=== PATIENT | female | born 1935 | race Caucasian/White ===

== ENCOUNTER 2017-08-12 20:43 | Observation (INO) ==
[2017-08-13] MEDS ORDERED: Naloxone 0.4 MG/ML INJ IVP PRN (01:02)
[2017-08-13] MEDS ORDERED: Acetaminophen 325 MG TABLET PO PRN (01:02)
--- NOTE | 2017-08-13 01:13 | Internal Med History&Physical ---
Date of Encounter: 08/13/17 Time of Encounter: 00:30 Internal Medicine - H&P: HPI Chief complaint: Shortness of breath Admitted From: Home Plans for Post Hospital Care: Home History of present illness: Ms. Lewis is a 81 year old female present to [place] emergency room for shortness of breath and palpitation. Past medical history is significant for A. fib on warfarin, history of DVT S/P IVC filter, S/P gastric bypass surgery. Patient has a history of A. fib. Today around 5 PM, she started having shaking , shortness of breath, and palpitation. Patient also complained ache on left side chest. Patient denies fever, cough, or nausea. In the emergency room, she was found A. fib RVR with heart rate 130s. She was placed on Cardizem drip. Patient's HR at down to around 100. Patient was transferred to our hospital for further management. Past Med Surg Social Fam HX - Past Medical History Medical history: arthritis, DVT, hyperlipidemia, osteoporosis Psychiatric history: no psych history - Social History Smoking Status: Never smoker Smokeless Tobacco Status: No Alcohol use: none Drug use: none - Family History Father Family Member Ethnicity: Non- Living Status: Age at : 67 Hx Family Cancer: Yes (colon cancer) Mother Family Member Ethnicity: Non- Living Status: Age at : 87 Hx Family Cardiac Disorders: Yes Internal Medicine - H&P: Meds Diltiazem HCl [Cardizem LA] 60 mg PO BID #10 tab.er.24h 10/19/15 [Rx] HYDROcodone/Acet 5/325 mg [[place] 5-325 mg] 1 tab PO Q6H PRN #12 tab 10/19/15 [Rx ] Aspirin [Lo-Dose Aspirin EC] 81 mg PO DAILY 08/13/17 [History] Calcium Carbonate [Calcium] 1,000 mg PO DAILY 08/13/17 [History] Cholecalciferol (D-3) [Vitamin D] 1,000 unit PO DAILY 08/13/17 [History] Ferrous Sulfate [Iron] 325 mg PO DAILY 08/13/17 [History] Furosemide [Lasix] 40 mg PO DAILY 08/13/17 [History] Potassium &Magnesium Aspartate [Ra Potassium-Magnesium Asp 250] 1 each PO [History] Spironolactone [Aldactone] 50 mg PO DAILY 08/13/17 [History] Warfarin [Coumadin] 7.5 mg PO DAILY 08/13/17 [History] 3 Allergy/AdvReac Type Severity Reaction Status Date / Time Penicillins Allergy Hives Verified 04/20/15 14:04 Sulfa (Sulfonamide Allergy Swelling Verified 04/20/15 14:04 Antibiotics) of Lip/Tongue/Throat All Systems PM: A 10-system review of systems was performed and is negative for pertinent findings except as documented above in the HPI. - Constitutional Vitals: Temp Pulse Resp BP Pulse Ox 98.3 F 93 20 100/70 96 08/12/17 23:41 08/12/17 23:41 08/12/17 23:41 08/12/17 23:41 08/12/17 23:41 General appearance: Present: A&O X 3, no acute distress, answers questions appropriately - Head Head exam: Present: atraumatic, normocephalic - Eye Eye exam: Present: PERRL, conjuntiva pink, sclera anicteric Pupils: Present: PERRL - Neck Neck exam general surgery: Present: supple, trachea midline. Absent: lymphadenopathy - Respiratory Respiratory exam: Present: chest wall tenderness (On left side), CTAB. Absent: accessory muscle use, rales, rhonchi, wheezes - Cardiovascular Cardiovascular exam: Present: irregular rhythm, +S1, +S2. Absent: diastolic murmur, gallop, rubs, systolic murmur - GI/Abdominal GI/Abdominal exam: Present: normal bowel sounds, soft, no peritoneal signs. Absent: distended, tenderness - Extremities Exam Extremities exam: Present: warm, radial pulses palpable and symmetrical. Absent : calf tenderness, cyanotic, pedal edema - Neurological Exam Neurological exam: Present: CN II-XII intact, oriented X3, no focal deficits. Absent: pronater drift, facial droop, speech deficit - Skin Skin exam: Present: dry, intact - Assessment and plan (1) Atrial fibrillation with RVR Current Visit: Yes Status: Acute Assessment and plan: Patient has history of A. fib. Patient did develop A. fib RVR. Right now, heart rate is well controlled on Cardizem drip - Continue Cardizem drip - Restart by mouth Cardizem in a.m. and try to taper down Cardizem drip gradually. - Check TSH and magnesium level - Continue cardiac monitoring (2) History of DVT (deep vein thrombosis) Current Visit: Yes Status: Acute Assessment and plan: On warfarin. S/P IVC filter. In [place] ER, patient has negative high sensitive d-dimer (< 150). (3) DVT prophylaxis Current Visit: Yes Status: Acute Assessment and plan: On Coumadin. INR therapeutic (4) Chest pain Current Visit: Yes Status: Acute Assessment and plan: Etiology is undetermined. Patient has chest wall tenderness, most likely skeletal muscular pain. Need to rule out ACS. - Continuous cardiac monitoring - Track 3 sets of troponin ( first troponin and CKMP negative in [place] ER), however, mild elevated troponin is not unexpected, considering patient has A. fib RVR. - D-dimer negative in [facility], PE is less likely Qualifiers: Qualified Code(s): R07.9 - Chest pain, unspecified - Time Spent With Patient Total time spent is greater than 50% in coordination of care (as documented) at patient's floor/unit and/or counseling patient: 40 minutes Greater than 35 minutes
[2017-08-13] MEDS ORDERED: 0.9 % Sodium Chloride 500 ML ONE (01:33)
[2017-08-13 03:33] LABS: Basophils % 0.3 %; Eosinophils % 0.3 %; Hematocrit 38.7 % (35.3-44.9); Hemoglobin 12.5 g/dL (11.5-15.4); Immature Granulocytes % 0.7 % (0-4); Lymphocytes # 0.9 K/mcL (0.6-4.6); Lymphocytes % 7.6 %; Mean Corpuscular HGB Conc 32.3 g/dL (31.6-35.5); Mean Corpuscular Hemoglobin 29.8 pg (28.0-33.3); Mean Corpuscular Volume 92.4 fL (83.0-100.0); Mean Platelet Volume 9.1 fL (9.4-12.4); Monocytes # 0.9 K/mcL (0.0-1.3); Monocytes % 7.6 %; Neutrophils # 9.8 K/mcL (1.6-8.9); Nucleated Red Blood Cells 0.2 /100 WBC (0); Platelet Count 322 K/mcL (140-400); Red Blood Count 4.19 M/mcL (3.82-4.97); Red Cell Distribution Width 14.6 % (11.5-14.5); Segmented Neutrophils % 83.5 %
[2017-08-13 03:40] LABS: INR 2.3; Prothrombin Time 25.2 Seconds (9.4-12.1)
[2017-08-13 03:49] LABS: BUN/Creatinine Ratio 31 (6-26); Blood Urea Nitrogen 26 mg/dL (8-23); Calcium 8.6 mg/dL (8.6-10.3); Carbon Dioxide 28 mEq/L (23-29); Chloride 105 mEq/L (98-107); Glucose 104 mg/dL (70-105); Magnesium 2.3 mg/dL (1.6-2.6); Osmolality,Calculated 291 (280-300); Sodium 138 mEq/L (136-145); eGFR For African Americans > 60 (> 60); eGFR For Non-African Americans > 60 (> 60)
[2017-08-13] MEDS: Cholecalciferol (D-3) 1,000 UNIT TABLET PO SCH (08:28)
[2017-08-13] MEDS: Furosemide 40 MG TABLET PO SCH (08:28)
[2017-08-13] MEDS: Aspirin Enteric Coated 81 MG Tablet PO SCH (08:29)
[2017-08-13] MEDS: *HR* HYDROcodone/Acet 5/325 mg TABLET PO PRN ×2 (08:29→17:45)
[2017-08-13] MEDS ORDERED: Diltiazem SR (12hr) 60 MG CAPSULE PO SCH (09:00)
[2017-08-13] MEDS: *HR* Warfarin 7.5 MG TABLET PO SCH (17:45)
[2017-08-14] MEDS ORDERED: Regadenoson 0.4 MG/5 ML SYRINGE IVP ONE (05:24)
[2017-08-14 05:40] LABS: Basophils % 0.5 %; Eosinophils % 0.3 %; Hemoglobin 13.8 g/dL (11.5-15.4); Immature Granulocytes % 0.4 % (0-4); Lymphocytes # 1.4 K/mcL (0.6-4.6); Mean Corpuscular HGB Conc 32.1 g/dL (31.6-35.5); Mean Corpuscular Hemoglobin 29.9 pg (28.0-33.3); Mean Corpuscular Volume 93.1 fL (83.0-100.0); Mean Platelet Volume 9.4 fL (9.4-12.4); Monocytes % 12.3 %; Neutrophils # 5.6 K/mcL (1.6-8.9); Platelet Count 321 K/mcL (140-400); Red Blood Count 4.62 M/mcL (3.82-4.97); Red Cell Distribution Width 14.5 % (11.5-14.5); Segmented Neutrophils % 69.5 %
[2017-08-14 05:45] LABS: INR 1.4; Prothrombin Time 14.9 Seconds (9.4-12.1)
[2017-08-14 05:55] LABS: BUN/Creatinine Ratio 32 (6-26); Blood Urea Nitrogen 24 mg/dL (8-23); Carbon Dioxide 29 mEq/L (23-29); Chloride 109 mEq/L (98-107); Glucose 87 mg/dL (70-105); Magnesium 2.3 mg/dL (1.6-2.6); Osmolality,Calculated 299 (280-300); Sodium 143 mEq/L (136-145); eGFR For African Americans > 60 (> 60); eGFR For Non-African Americans > 60 (> 60)
[2017-08-14] MEDS: *HR* HYDROcodone/Acet 5/325 mg TABLET PO PRN ×2 (10:29→17:40)
[2017-08-14] MEDS: Aspirin Enteric Coated 81 MG Tablet PO SCH (10:30)
[2017-08-14] MEDS: Cholecalciferol (D-3) 1,000 UNIT TABLET PO SCH (10:30)
[2017-08-14] MEDS: Furosemide 40 MG TABLET PO SCH (10:30)
--- NOTE | 2017-08-14 11:07 | Internal Med Progress Note ---
Date of Encounter: 08/14/17 Time of Encounter: 10:30 - Assessment and plan (1) Atrial fibrillation with RVR Current Visit: Yes Status: Acute Assessment and plan: Echo today: Impressions: LVEF 55%. Indeterminate diastolic function. Normal right ventricular structure and function. Severely dilated left atrium. Mild tricuspid regurgitation. No pulmonary hypertension. Plan #1 use IV Cardizem as needed. Patient got morning oral dose of Cardizem. We will start beta lópez with hopes to achieve better rate control. Wean off IV Cardizem infusion as tolerated to achieve heart rate present 110. #2 in evidence of dilated left atrium, rhythm control will be a difficult strategy. (2) Chest pain Current Visit: Yes Status: Acute Assessment and plan: Plan #1 continue aspirin and beta lópez #2 nuclear Lexiscan stress test when rate controlled #3 consider cardiology evaluation if any significant changes noted on stress test (3) History of DVT (deep vein thrombosis) Current Visit: Yes Status: Acute Assessment and plan: On warfarin. S/P IVC filter. In [place] ER, patient has negative high sensitive d-dimer (< 150). (4) DVT prophylaxis Current Visit: Yes Status: Acute Assessment and plan: On Coumadin. INR therapeutic - Time Spent With Patient Total time spent is greater than 50% in coordination of care (as documented) at patient's floor/unit and/or counseling patient: 25 - 35 minutes - Subjective Interval history: She reports palpitations this morning. Had echo but could not do stress test because of tachycardia. - Constitutional Vitals: Temp Pulse Resp BP Pulse Ox 97.5 F L 104 16 114/78 98 08/14/17 10:03 08/14/17 10:03 08/14/17 10:03 08/14/17 10:03 08/14/17 10:03 General appearance: Present: A&O X 3, no acute distress, answers questions appropriately Exam: Physical exam Gen: Comfortable, laying in bed, in no visible distress HEENT: Normocephalic, atraumatic. No conjunctival icterus. Moist oral mucosa. Neck: Supple Lungs: Clear to auscultation, no foreign sounds Heart: Normal S1-S2, no murmurs rubs or gallops Abdomen: Normoactive bowel sounds, no guarding rigidity or tenderness Extremities: No edema clubbing or cyanosis Neuro: Alert oriented 3, no focal deficits Skin: No skin lesions Internal Medicine: Result - Labs CBC & Chem 7: 08/14/17 04:56 08/14/17 04:56 Labs: Short CBC 08/14/17 Range/Units 04:56 WBC 8.0 (4.3-11.1) K/mcL Hgb 13.8 (11.5-15.4) g/dL Hct 43.0 (35.3-44.9) % Plt Count 321 (140-400) K/mcL Neutrophils # 5.6 (1.6-8.9) K/mcL BMP 08/14/17 04:56 Sodium 143 Potassium 4.0 Chloride 109 H Carbon Dioxide 29 BUN 24 H Creatinine 0.76 Glucose 87 Calcium 9.0 - ABG Interpretation ABG results: PT/INR, D-dimer PT 14.9 Seconds (9.4-12.1) H 08/14/17 04:56 - Impressions Impressions Echocardiogram 08/14/17 13:13 Impressions: LVEF 55%. Indeterminate diastolic function. Normal right ventricular structure and function. Severely dilated left atrium. Mild tricuspid regurgitation. No pulmonary hypertension. Left Ventricular Wall Motion: Rest Echo Findings All wall segments showed normal motion. Findings: Study Quality * Technically adequate exam. ECG Findings * Atrial fibrillation. Left Ventricle * LVEF 55%. * Indeterminate diastolic function. * Normal LV chamber size, wall thickness and function. Right Ventricle * Normal right ventricular structure and function. Left Atrium * Severely dilated left atrium. Right Atrium * Mildly dilated right atrium. Aortic Valve * Trileaflet aortic valve. * Mildly thickened aortic valve leaflets. * Mild-moderate aortic regurgitation. * No aortic stenosis. Mitral Valve * No mitral stenosis. * Normal mitral valve structure. * Trace mitral regurgitation. Tricuspid Valve * Tricuspid valve not well visualized. * Mild tricuspid regurgitation. * Estimated RA pressure is 3 mmHg. * Estimated RVSP is 28 mmHg. * No pulmonary hypertension. Pulmonic Valve * Pulmonic valve is not well visualized. * No pulmonic stenosis. * No pulmonic regurgitation. Pulmonary Artery * Pulmonary artery not well visualized. Aorta * Normally sized aortic root. Pericardium * There is no pericardial effusion present. Interatrial Septum * No evidence of PFO by color Doppler. IVC * Normal IVC dimensions and inspiratory collapse. Consult Discharge Plan - Plan Referrals: Marcelino Rosario Jr, MD [Primary Care Provider] -
--- NOTE | 2017-08-14 13:30 | Cardiology Consult Note ---
Date of Encounter: 08/14/17 Time of Encounter: 13:00 Assessment and Plan (1) Atrial fibrillation with RVR Current Visit: Yes Status: Acute Per cardiology: -Presented to outside facility with shakiness. -Noted to be a.fib RVR. History of a.fib. -ON cardizem CD 180mg at home and coumdain for antiocagulation. -Currently coumadin pharmacy to dose. -Average HR previous 12 hours noted to be 108, a.fib -TTE this admsision with LVEF 55%, severely dilated LA, mild TR, no segmental wall motion abnormalities. -TSH, K, Mg within normal limits. -Agree with resuming cardizem drip. Monitor BP closely. -Contine coumadin. -Will continue to monitor. (2) Chest pain Current Visit: Yes Status: Acute Per cardiology: -Reported some chest "achiness" while in a.fib RVR. -Denies current chest pain. -TRopnins negative x3 (1 [place], 2 [facility]). -ECG with no acute ischemic changes note from previosu ECG 10/2015. -Patient reports was planning for stress today, however unable to complete due to tachycardia. -No previous ischemic evaluations noted. -Agree with stress, if able to be rate controlled. -Will make NPO after midnight. -Will continue to monitor. Qualifiers: Chest pain type: unspecified Qualified Code(s): R07.9 - Chest pain, unspecified Discussion w patient/family: The assessment and plan as outlined above was discussed with the patient and/or family members who expressed understanding and agreement. All questions were answered. Thank you for involving us in the care of your patient. Please call with any questions. Discussed and reviewed with . History of Present Illness Consult date: 08/14/17 Requesting physician: Ruma Islas Consult reason: a.fib RVR Chief complaint: shakining, rapid HR History of present illness: Ms. 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 Patient presented to [place] with complaints of shakiness. Patient was noted to be in a.fib RVR and was transferred to [facility]. Patient reports history of a.fib and has been compliant with cardizem and coumadin. Patient also reports some chest achiness while HR was high, denies current. Reports increased shortness of breath with exertion recently. Past Med Surg Social Fam HX - Past Medical History Attestation: Yes The following information was validated with the patient. Source: patient, old records reviewed, obtained from family Medical history: arthritis, atrial fibrillation, DVT, hyperlipidemia, osteoporosis Psychiatric history: no psych history - Social History Smoking Status: Never smoker Smokeless Tobacco Status: No Alcohol use: none Drug use: none - Family History Father Family Member Ethnicity: Non- Living Status: Age at : 67 Hx Family Cancer: Yes (colon cancer) Mother Family Member Ethnicity: Non- Living Status: Age at : 87 Hx Family Cardiac Disorders: Yes Medications and Allergies HYDROcodone/Acet 5/325 mg [[place] 5-325 mg] 1 tab PO Q6H PRN #12 tab 10/19/15 [Rx ] Aspirin [Lo-Dose Aspirin EC] 81 mg PO DAILY 08/13/17 [History] Calcium Carbonate [Calcium] 1,000 mg PO DAILY 08/13/17 [History] Cholecalciferol (D-3) [Vitamin D] 1,000 unit PO DAILY 08/13/17 [History] Diltiazem HCl [Cardizem LA] 180 mg PO DAILY 08/13/17 [History] Ferrous Sulfate [Iron] 325 mg PO DAILY 08/13/17 [History] Furosemide [Lasix] 40 mg PO TID 08/13/17 [History] Potassium &Magnesium Aspartate [Ra Potassium-Magnesium Asp 250] 1 each PO DAILY 08/13/17 [History] Spironolactone [Aldactone] 50 mg PO DAILY 08/13/17 [History] Warfarin [Coumadin] 7.5 mg PO DAILY 08/13/17 [History] 3 Allergy/AdvReac Type Severity Reaction Status Date / Time Penicillins Allergy Hives Verified 08/13/17 10:58 Sulfa (Sulfonamide Allergy Swelling Verified 08/13/17 10:58 Antibiotics) of Lip/Tongue/Throat All Systems Review: The remainder of the systems were reviewed and are negative - Cardiovascular Cardiovascular: as per HPI, chest pain at rest, dyspnea on exertion, rapid heart rate Physical Examination Vital Signs, Last 4 Hours Temp Pulse Resp BP Pulse Ox 08/14/17 11:35 97.4 F L 69 16 108/66 99 08/14/17 10:03 97.5 F L 104 16 114/78 98 General: Conversant, No Apparent Distress HEENT: Atraumatic, Normocephaly, Mucus Membranes Moist Neck: No JVD, Normal carotid pulses Cardiac: Normal S1 and S2, No Murmur, Other (Irregularly irregular) Lungs: Normal Breath Sounds, No Wheeze, Rales, Rhonchi Neuro: Alert and responsive, No focal deficits noted Abdomen: Soft, Non-Tender Skin: No rashes noted on visualized skin Musculoskeletal: No Chest Wall Tenderness Extremities: No Clubbing, No Cyanosis, No Edema, Normal Pulses Results 08/14/17 04:56 08/14/17 04:56 Lab Results Impressions Echocardiogram 08/14/17 13:13 Impressions: LVEF 55%. Indeterminate diastolic function. Normal right ventricular structure and function. Severely dilated left atrium. Mild tricuspid regurgitation. No pulmonary hypertension. Left Ventricular Wall Motion: Rest Echo Findings All wall segments showed normal motion. Findings: Study Quality * Technically adequate exam. ECG Findings * Atrial fibrillation. Left Ventricle * LVEF 55%. * Indeterminate diastolic function. * Normal LV chamber size, wall thickness and function. Right Ventricle * Normal right ventricular structure and function. Left Atrium * Severely dilated left atrium. Right Atrium * Mildly dilated right atrium. Aortic Valve * Trileaflet aortic valve. * Mildly thickened aortic valve leaflets. * Mild-moderate aortic regurgitation. * No aortic stenosis. Mitral Valve * No mitral stenosis. * Normal mitral valve structure. * Trace mitral regurgitation. Tricuspid Valve * Tricuspid valve not well visualized. * Mild tricuspid regurgitation. * Estimated RA pressure is 3 mmHg. * Estimated RVSP is 28 mmHg. * No pulmonary hypertension. Pulmonic Valve * Pulmonic valve is not well visualized. * No pulmonic stenosis. * No pulmonic regurgitation. Pulmonary Artery * Pulmonary artery not well visualized. Aorta * Normally sized aortic root. Pericardium * There is no pericardial effusion present. Interatrial Septum * No evidence of PFO by color Doppler. IVC * Normal IVC dimensions and inspiratory collapse. Active Medications Acetaminophen (Tylenol) 650 mg PO Q6HR PRN PRN Reason: Mild Pain/Fever Stop: 02/12/18 01:03 Hydrocodone Bitart/Acetaminophen ([place] 5-325 Mg) 1 tab PO Q6H PRN PRN Reason: Pain Stop: 02/12/18 01:07 Last Admin: 08/14/17 10:29 Dose: 1 tab Aspirin (Aspirin Ec) 81 mg PO DAILY [facility] Stop: 02/12/18 09:01 Last Admin: 08/14/17 10:30 Dose: 81 mg Calcium Carbonate (Tums) 1,000 mg PO DAILY [facility] Stop: 02/12/18 09:01 Last Admin: 08/14/17 10:30 Dose: 1,000 mg Ferrous Sulfate (Ferrous Sulfate) 325 mg PO DAILY [facility] Stop: 02/12/18 09:01 Last Admin: 08/14/17 10:30 Dose: 325 mg Furosemide (Lasix) 40 mg PO DAILY [facility] Stop: 02/12/18 09:01 Last Admin: 08/14/17 10:30 Dose: 40 mg Diltiazem HCl 125 mg/ Sodium (Chloride) 125 mls @ 5 mls/hr IVC .Q24H [facility] PRN Reason: 5 MG/HR Stop: 02/13/18 11:16 Metoprolol Tartrate (Lopressor) 25 mg PO Q6HR [facility] Stop: 02/13/18 12:01 Naloxone HCl (Narcan) 0.4 mg IVP Q2MIN PRN PRN Reason: SEE COMMENTS Stop: 02/12/18 01:03 Vitamin D (Vitamin D) 1,000 unit PO DAILY [facility] Stop: 02/12/18 09:01 Last Admin: 08/14/17 10:30 Dose: 1,000 unit Warfarin Sodium (Coumadin) 7.5 mg PO DAILY@1800 [facility] Stop: 02/12/18 18:01 Last Admin: 08/13/17 17:45 Dose: 7.5 mg Warfarin Sodium (Coumadin Perpt) 1 each PO DAILY@1800 PRN PRN Reason: SEE COMMENTS Stop: 02/13/18 18:01 Laboratory Tests 08/13/17 08/13/17 08/13/17 01:16 03:04 06:34 Hgb Hct INR Potassium Creatinine Magnesium Troponin I < 0.03 < 0.03 TSH 1.390 08/14/17 08/14/17 08/14/17 04:56 04:56 04:56 Hgb 13.8 Hct 43.0 INR 1.4 Potassium 4.0 Creatinine 0.76 Magnesium 2.3 Troponin I TSH - Imaging and Cardiology Chest Xray: report reviewed Echo: report reviewed - EKG Interpretation EKG results cardiology: personally reviewed (ECG with a.fib RVR, HR 134.), other (Telemetry reviewed with average HR previous 12 hours noted to be 108, a.fib. PVCS noted.) Consult Discharge Plan - Plan Referrals: Marcelino Rosario Jr, MD [Primary Care Provider] -
[2017-08-14] MEDS ORDERED: 0.9 % Sodium Chloride 500 ML ONE (13:40)
[2017-08-14] MEDS ORDERED: *HR* Digoxin 0.5 MG/2 ML AMPUL IVP ONE ×2 (16:29→23:00)
[2017-08-14] MEDS ORDERED: Warfarin perPT PO PRN (18:00)
[2017-08-14] MEDS: *HR* Warfarin 7.5 MG TABLET PO SCH (18:54)
[2017-08-15 04:13] LABS: Basophils # 0.1 K/mcL (0.0-0.2); Basophils % 0.5 %; Eosinophils % 0.2 %; Hematocrit 43.8 % (35.3-44.9); Hemoglobin 14.1 g/dL (11.5-15.4); Immature Granulocytes % 0.4 % (0-4); Lymphocytes # 1.8 K/mcL (0.6-4.6); Lymphocytes % 19.4 %; Mean Corpuscular HGB Conc 32.2 g/dL (31.6-35.5); Mean Corpuscular Hemoglobin 29.9 pg (28.0-33.3); Monocytes # 1.1 K/mcL (0.0-1.3); Monocytes % 11.4 %; Neutrophils # 6.3 K/mcL (1.6-8.9); Platelet Count 323 K/mcL (140-400); Red Blood Count 4.71 M/mcL (3.82-4.97); Red Cell Distribution Width 14.2 % (11.5-14.5); Segmented Neutrophils % 68.1 %
[2017-08-15 04:18] LABS: INR 1.4; Prothrombin Time 15.4 Seconds (9.4-12.1)
[2017-08-15 04:27] LABS: BUN/Creatinine Ratio 35 (6-26); Blood Urea Nitrogen 28 mg/dL (8-23); Carbon Dioxide 24 mEq/L (23-29); Chloride 110 mEq/L (98-107); Glucose 88 mg/dL (70-105); Potassium 3.9 mEq/L (3.5-5.1); Sodium 141 mEq/L (136-145); eGFR For African Americans > 60 (> 60); eGFR For Non-African Americans > 60 (> 60)
[2017-08-15 04:28] LABS: Magnesium 2.2 mg/dL (1.6-2.6); Osmolality,Calculated 297 (280-300)
[2017-08-15] MEDS ORDERED: *HR* Digoxin 0.5 MG/2 ML AMPUL IVP ONE (05:00)
[2017-08-15] MEDS: *HR* HYDROcodone/Acet 5/325 mg TABLET PO PRN ×3 (05:53→19:58)
--- NOTE | 2017-08-15 07:52 | Internal Med Progress Note ---
<Chico Diana - Last Filed: 08/15/17 12:54> Date of Encounter: 08/15/17 Time of Encounter: 07:52 - Assessment and plan (1) Atrial fibrillation with RVR Current Visit: Yes Status: Acute Assessment and plan: Patient still in A-fib with better rate control on minimum rate of Cardizem drip. Attempting to wean to PO control. - optimize rate control - continue to wean Cardizem drip - transition to PO Cardizem and PO digoxin - continue Coumadin therapy with INR goal of 2 to 3; sub therapeutic INR at 1.4 today. Pharmacy to dose. - per cardiology, no further and patient testing needed - once stable on PO medications, will observe patient for period of time - likely discharge tomorrow or the day after - will arrange cardiology follow up within the next few weeks upon discharge - re-consult cardiology as needed ECHO: LVEF 55%. Indeterminate diastolic function. Normal right ventricular structure and function. Severely dilated left atrium. Mild tricuspid regurgitation. No pulmonary hypertension. (2) History of DVT (deep vein thrombosis) Current Visit: Yes Status: Acute Assessment and plan: On warfarin. S/P IVC filter. In [facility], patient has negative high sensitive d-dimer (< 150). (3) DVT prophylaxis Current Visit: Yes Status: Acute Assessment and plan: On Coumadin. INR sub therapeutic for goal. Pharmacy to dose. (4) Chest pain Current Visit: Yes Status: Resolved Assessment and plan: Improved with rate controlled a fib; all plans as above. Qualifiers: Chest pain type: unspecified Qualified Code(s): R07.9 - Chest pain, unspecified - Time Spent With Patient Total time spent is greater than 50% in coordination of care (as documented) at patient's floor/unit and/or counseling patient: - Subjective Interval history: Patient currently asymptomatic. Rate controlled though still in a fib at minimal rate Cardizem infusion; attempting to wean. - Constitutional Vitals: Temp Pulse Resp BP Pulse Ox 97.9 F 77 15 114/74 96 08/15/17 07:39 08/15/17 07:39 08/15/17 07:39 08/15/17 07:39 08/15/17 05:16 CONSTITUTIONAL: Alert and oriented X3, well-nourished, well appearing, in no apparent distress HEAD: Normocephalic; atraumatic. EYES: PER, no scleral icterus, no drainage, no conjunctival injection NOSE: The nose is normal in appearance without rhinorrhea Oropharynx: pink/moist, no tonsillar edema/erythema/exudates RESP: NRD without use of accessory musculature, CTA b/l with no wheezes/rales/ rhonchi CARD: irregularly irregular rhythm, without murmurs, rubs, or gallop; radial pulse palpated with rate in the 70s SKIN: normal appearance, no pallor/diaphoresis,mottling,jaundice,cyanosis EXT: Rad pulses 2+ and symmetrical; no lateralizing edema; no other lesions seen PSYCH: appropriate mood/affect Internal Medicine: Result - Labs CBC & Chem 7: 08/15/17 03:54 08/15/17 03:54 Labs: Short CBC 08/15/17 Range/Units 03:54 WBC 9.2 (4.3-11.1) K/mcL Hgb 14.1 (11.5-15.4) g/dL Hct 43.8 (35.3-44.9) % Plt Count 323 (140-400) K/mcL Neutrophils # 6.3 (1.6-8.9) K/mcL BMP 08/15/17 03:54 Sodium 141 Potassium 3.9 Chloride 110 H Carbon Dioxide 24 BUN 28 H Creatinine 0.79 Glucose 88 Calcium 9.0 - ABG Interpretation ABG results: PT/INR, D-dimer PT 15.4 Seconds (9.4-12.1) H 08/15/17 03:54 - Impressions Impressions Echocardiogram 08/14/17 13:13 Impressions: LVEF 55%. Indeterminate diastolic function. Normal right ventricular structure and function. Severely dilated left atrium. Mild tricuspid regurgitation. No pulmonary hypertension. Left Ventricular Wall Motion: Rest Echo Findings All wall segments showed normal motion. Findings: Study Quality * Technically adequate exam. ECG Findings * Atrial fibrillation. Left Ventricle * LVEF 55%. * Indeterminate diastolic function. * Normal LV chamber size, wall thickness and function. Right Ventricle * Normal right ventricular structure and function. Left Atrium * Severely dilated left atrium. Right Atrium * Mildly dilated right atrium. Aortic Valve * Trileaflet aortic valve. * Mildly thickened aortic valve leaflets. * Mild-moderate aortic regurgitation. * No aortic stenosis. Mitral Valve * No mitral stenosis. * Normal mitral valve structure. * Trace mitral regurgitation. Tricuspid Valve * Tricuspid valve not well visualized. * Mild tricuspid regurgitation. * Estimated RA pressure is 3 mmHg. * Estimated RVSP is 28 mmHg. * No pulmonary hypertension. Pulmonic Valve * Pulmonic valve is not well visualized. * No pulmonic stenosis. * No pulmonic regurgitation. Pulmonary Artery * Pulmonary artery not well visualized. Aorta * Normally sized aortic root. Pericardium * There is no pericardial effusion present. Interatrial Septum * No evidence of PFO by color Doppler. IVC * Normal IVC dimensions and inspiratory collapse. Consult Discharge Plan - Plan Referrals: Marcelino Rosario Jr, MD [Primary Care Provider] - 08/23/17 10:00 am <Wilfredo Marie - Last Filed: 08/15/17 15:55> Date of Encounter: 08/15/17 - Assessment and plan (1) Atrial fibrillation with RVR Current Visit: Yes Status: Acute (2) History of DVT (deep vein thrombosis) Current Visit: Yes Status: Acute (3) DVT prophylaxis Current Visit: Yes Status: Acute (4) Chest pain Current Visit: Yes Status: Resolved - Time Spent With Patient Total time spent is greater than 50% in coordination of care (as documented) at patient's floor/unit and/or counseling patient: - Constitutional Vitals: Temp Pulse Resp BP Pulse Ox 98.1 F 97 17 91/68 92 08/15/17 12:12 08/15/17 12:12 08/15/17 12:12 08/15/17 12:12 08/15/17 12:12 Internal Medicine: Result - Labs CBC & Chem 7: 08/15/17 03:54 08/15/17 03:54 Labs: Short CBC 08/15/17 Range/Units 03:54 WBC 9.2 (4.3-11.1) K/mcL Hgb 14.1 (11.5-15.4) g/dL Hct 43.8 (35.3-44.9) % Plt Count 323 (140-400) K/mcL Neutrophils # 6.3 (1.6-8.9) K/mcL BMP 08/15/17 03:54 Sodium 141 Potassium 3.9 Chloride 110 H Carbon Dioxide 24 BUN 28 H Creatinine 0.79 Glucose 88 Calcium 9.0 - ABG Interpretation ABG results: PT/INR, D-dimer PT 15.4 Seconds (9.4-12.1) H 08/15/17 03:54 - Attending Attestation I examined this patient and my medical decision-making was reviewed with the Resident Physician. I agree with the documented findings, disposition and treatment plan as described except to the extent set forth below. 81 F admitted for Afib with RVR, (paroxysmal), already on anticoagulation for DVT, no new complains, physical exam unremarkable, chest is CTAB, now being digitalized by cardio, continue management per cardio, blood pressure borderline low, continue to monitor, INR is sub-therapeutic, pharm to dose coumadin, monitor chem, rest of details as in the resident physician's documentation
[2017-08-15] MEDS: Cholecalciferol (D-3) 1,000 UNIT TABLET PO SCH (08:14)
[2017-08-15] MEDS: Furosemide 40 MG TABLET PO SCH (08:14)
[2017-08-15] MEDS: Aspirin Enteric Coated 81 MG Tablet PO SCH (08:14)
--- NOTE | 2017-08-15 11:01 | Cardiology Progress Note ---
Date of Encounter: 08/15/17 Time of Encounter: 09:30 Assessment and Plan (1) Atrial fibrillation with RVR Current Visit: Yes Status: Acute Per cardiology: -Presented to outside facility with shakiness. -Noted to be a.fib RVR. History of a.fib. -ON cardizem CD 180mg at home and coumdain for antiocagulation. -Currently coumadin pharmacy to dose. -Average HR previous 12 hours noted to be 82,a.fib -Was given IV dig load yesterday and started back on cardizem drip. Currently on cardizem drip at 2.5mg/hour. -TTE this admsision with LVEF 55%, severely dilated LA, mild TR, no segmental wall motion abnormalities. -TSH, K, Mg within normal limits. -Will start oral digoxin and oral cardizem. -Recommend outpatient stress and outpatient sleep study. -Cardiology will sign off and will follow in outpateint setting. Follow up set. (2) Chest pain Current Visit: Yes Status: Acute Per cardiology: -Reported some chest "achiness" while in a.fib RVR. -Denies current chest pain. -TRopnins negative x3 (1 [facility], 2 [facility]). -ECG with no acute ischemic changes note from previosu ECG 10/2015. -Patient reports was planning for stress today, however unable to complete due to tachycardia. -No previous ischemic evaluations noted. -Per discussion with , reasonable to proceed with outpateint stress test. Qualifiers: Chest pain type: unspecified Qualified Code(s): R07.9 - Chest pain, unspecified Discussion w patient/family: The assessment and plan as outlined above was discussed with the patient and/or family members who expressed understanding and agreement. All questions were answered. Thank you for involving us in the care of your patient. Please call with any questions. Discussed and reviewed with . Subjective Principal diagnosis: a.fib RVR Interval history: Patient denies chest pain. Denies shortness of breath this morning. Objective Vital Signs, Last 4 Hours Temp Pulse Resp BP 08/15/17 07:39 97.9 F 77 15 114/74 General: Conversant, No Apparent Distress HEENT: Atraumatic, Normocephaly, Mucus Membranes Moist Neck: No JVD, Normal carotid pulses Cardiac: Normal S1 and S2, No Murmur, Other (Irregularly irregular) Lungs: Normal Breath Sounds, No Wheeze, Rales, Rhonchi Neuro: Alert and responsive, No focal deficits noted Abdomen: Soft, Non-Tender Skin: No rashes noted on visualized skin Musculoskeletal: No Chest Wall Tenderness Extremities: No Clubbing, No Cyanosis, No Edema, Normal Pulses Results 08/15/17 03:54 08/15/17 03:54 Lab Results Active Medications Acetaminophen (Tylenol) 650 mg PO Q6HR PRN PRN Reason: Mild Pain/Fever Stop: 02/12/18 01:03 Hydrocodone Bitart/Acetaminophen ([place] 5-325 Mg) 1 tab PO Q6H PRN PRN Reason: Pain Stop: 02/12/18 01:07 Last Admin: 08/15/17 05:53 Dose: 1 tab Aspirin (Aspirin Ec) 81 mg PO DAILY CHANTELL Stop: 02/12/18 09:01 Last Admin: 08/15/17 08:14 Dose: 81 mg Calcium Carbonate (Tums) 1,000 mg PO DAILY CHANTELL Stop: 02/12/18 09:01 Last Admin: 08/15/17 08:14 Dose: 1,000 mg Digoxin (Lanoxin) 0.125 mg PO DAILY CHANTELL Stop: 02/14/18 10:31 Ferrous Sulfate (Ferrous Sulfate) 325 mg PO DAILY CHANTELL Stop: 02/12/18 09:01 Last Admin: 08/15/17 08:14 Dose: 325 mg Furosemide (Lasix) 40 mg PO DAILY CHANTELL Stop: 02/12/18 09:01 Last Admin: 08/15/17 08:14 Dose: 40 mg Diltiazem HCl 125 mg/ Sodium (Chloride) 125 mls @ 5 mls/hr IVC .Q24H CHANTELL PRN Reason: 5 MG/HR Stop: 02/13/18 11:16 Last Infusion: 08/15/17 08:45 Dose: 2.5 mg/hr, 2.5 mls/hr Naloxone HCl (Narcan) 0.4 mg IVP Q2MIN PRN PRN Reason: SEE COMMENTS Stop: 02/12/18 01:03 Vitamin D (Vitamin D) 1,000 unit PO DAILY CHANTELL Stop: 02/12/18 09:01 Last Admin: 08/15/17 08:14 Dose: 1,000 unit Warfarin Sodium (Coumadin Perpt) 1 each PO DAILY@1800 PRN PRN Reason: SEE COMMENTS Stop: 02/13/18 18:01 Warfarin Sodium (Coumadin) 10 mg PO 1800 ONE Stop: 08/15/17 18:01 Laboratory Tests 08/15/17 08/15/17 08/15/17 03:54 03:54 03:54 Hgb 14.1 INR 1.4 Potassium 3.9 Creatinine 0.79 Magnesium 2.2 - Imaging and Cardiology Chest Xray: report reviewed Echo: report reviewed - EKG Interpretation EKG results cardiology: other (Telemetry reviewed with average HR previous 12 hours noted to be 82, a.fib. 2.3 second pause noted at 0541. PVCs noted.) Consult Discharge Plan - Plan Referrals: Marcelino Rosario Jr, MD [Primary Care Provider] - 08/23/17 10:00 am
[2017-08-15] MEDS: Diltiazem CD (24hr) 120 MG CAPSULE PO SCH (11:43)
[2017-08-15] MEDS: *HR* Digoxin 0.125 MG TABLET PO SCH (11:44)
[2017-08-15] MEDS ORDERED: *HR* Warfarin 5 MG TABLET PO ONE (18:00)
[2017-08-16 04:30] LABS: Basophils % 0.3 %; Eosinophils % 0.2 %; Hematocrit 46.8 % (35.3-44.9); Hemoglobin 15.1 g/dL (11.5-15.4); Immature Granulocytes % 0.4 % (0-4); Lymphocytes # 2.1 K/mcL (0.6-4.6); Lymphocytes % 18.8 %; Mean Corpuscular HGB Conc 32.3 g/dL (31.6-35.5); Mean Corpuscular Hemoglobin 29.8 pg (28.0-33.3); Mean Corpuscular Volume 92.5 fL (83.0-100.0); Mean Platelet Volume 9.3 fL (9.4-12.4); Monocytes # 1.2 K/mcL (0.0-1.3); Neutrophils # 7.8 K/mcL (1.6-8.9); Platelet Count 343 K/mcL (140-400); Red Blood Count 5.06 M/mcL (3.82-4.97); Red Cell Distribution Width 14.1 % (11.5-14.5); Segmented Neutrophils % 69.3 %
[2017-08-16 04:36] LABS: INR 1.9; Prothrombin Time 20.2 Seconds (9.4-12.1)
[2017-08-16 04:52] LABS: BUN/Creatinine Ratio 25 (6-26); Blood Urea Nitrogen 21 mg/dL (8-23); Calcium 9.1 mg/dL (8.6-10.3); Carbon Dioxide 26 mEq/L (23-29); Chloride 107 mEq/L (98-107); Glucose 95 mg/dL (70-105); Osmolality,Calculated 297 (280-300); Potassium 3.9 mEq/L (3.5-5.1); Sodium 142 mEq/L (136-145); eGFR For African Americans > 60 (> 60); eGFR For Non-African Americans > 60 (> 60)
[2017-08-16] MEDS: *HR* Digoxin 0.125 MG TABLET PO SCH (08:29)
[2017-08-16] MEDS: Cholecalciferol (D-3) 1,000 UNIT TABLET PO SCH (08:29)
[2017-08-16] MEDS: Diltiazem CD (24hr) 120 MG CAPSULE PO SCH (08:29)
[2017-08-16] MEDS: Aspirin Enteric Coated 81 MG Tablet PO SCH (08:29)
[2017-08-16] MEDS: Furosemide 40 MG TABLET PO SCH ×2 (08:29→17:39)
--- NOTE | 2017-08-16 09:43 | Internal Med Progress Note ---
<Chico Diana - Last Filed: 08/16/17 09:41> Date of Encounter: 08/16/17 Time of Encounter: 09:41 - Assessment and plan (1) Atrial fibrillation with RVR Current Visit: Yes Status: Acute Assessment and plan: Patient still in A-fib with better rate control without use of Cardizem infusion. Does have acute exertional dyspnea that is not patient's baseline. Patient understands will need to stabilize this before we can safely discharge her. - Continue to optimize rate control - continue PO Cardizem and PO digoxin - continue Coumadin therapy with INR goal of 2 to 3; sub therapeutic INR at 1.9 today. Pharmacy to dose. - per cardiology, no further inpatient testing needed - once stable on PO medications, will observe patient for period of time - likely discharge tomorrow or the day after pending improvement and respiratory status - will maintain patient on continuous pulse ox symmetry and may require ambulatory O2 challenge - increased frequency of Lasix to b.i.d. - will arrange cardiology follow up within the next few weeks upon discharge - re-consult cardiology as needed ECHO: LVEF 55%. Indeterminate diastolic function. Normal right ventricular structure and function. Severely dilated left atrium. Mild tricuspid regurgitation. No pulmonary hypertension. (2) History of DVT (deep vein thrombosis) Current Visit: Yes Status: Acute Assessment and plan: On warfarin. S/P IVC filter. In [place] [facility], patient has negative high sensitive d-dimer (< 150). (3) DVT prophylaxis Current Visit: Yes Status: Acute Assessment and plan: On Coumadin. INR sub therapeutic for goal. Pharmacy to dose. (4) Chest pain Current Visit: Yes Status: Resolved Assessment and plan: Improved with rate controlled a fib; all plans as above. Qualifiers: Chest pain type: unspecified Qualified Code(s): R07.9 - Chest pain, unspecified - Time Spent With Patient Total time spent is greater than 50% in coordination of care (as documented) at patient's floor/unit and/or counseling patient: - Subjective Interval history: Cardizem infusion successfully winning; patient still has slightly regular rhythm though is overall more metronomic. Rate palpated by radial artery within 70 to 80 range. Patient does have acute complaint of exertional dyspnea saying she cannot walk more than 20 steps without becoming short of air needing to stop and take a break. This is abnormal for her as patient states her usual function would allow her to walk at least 1-2 laps around this med unit without any limiting shortness of breath. Of note, patient has been receiving one third of her usual rate of Lasix (home dose 40 mg PO TID; has been daily on inpatient basis). - Constitutional Vitals: Temp Pulse Resp BP Pulse Ox 97.7 F 90 16 111/79 95 08/16/17 07:21 08/16/17 07:21 08/16/17 07:21 08/16/17 07:21 08/16/17 08:34 CONSTITUTIONAL: Alert and oriented X3, well-nourished, well appearing, in no apparent distress HEAD: Normocephalic; atraumatic. EYES: PER, no scleral icterus, no drainage, no conjunctival injection NOSE: The nose is normal in appearance without rhinorrhea Oropharynx: pink/moist, no tonsillar edema/erythema/exudates RESP: apparently short of breath after ambulating from sink to bedside chair, lung sounds completely CTA b/l with no wheezes/rales/rhonchi CARD: irregularly irregular rhythm, without murmurs, rubs, or gallop; radial pulse palpated with rate in the 70s SKIN: normal appearance, no pallor/diaphoresis,mottling,jaundice,cyanosis EXT: Rad pulses 2+ and symmetrical; no lateralizing edema; no other lesions seen PSYCH: appropriate mood/affect Internal Medicine: Result - Labs CBC & Chem 7: 08/16/17 03:50 08/16/17 03:50 Labs: Short CBC 08/16/17 Range/Units 03:50 WBC 11.2 H (4.3-11.1) K/mcL Hgb 15.1 (11.5-15.4) g/dL Hct 46.8 H (35.3-44.9) % Plt Count 343 (140-400) K/mcL Neutrophils # 7.8 (1.6-8.9) K/mcL BMP 08/16/17 03:50 Sodium 142 Potassium 3.9 Chloride 107 Carbon Dioxide 26 BUN 21 Creatinine 0.84 Glucose 95 Calcium 9.1 - ABG Interpretation ABG results: PT/INR, D-dimer PT 20.2 Seconds (9.4-12.1) H 08/16/17 03:50 Consult Discharge Plan - Plan Referrals: Marcelino Rosario Jr, MD [Primary Care Provider] - 08/23/17 10:00 am <CynthiaChristenWilfredo T - Last Filed: 08/16/17 12:56> Date of Encounter: 08/16/17 - Assessment and plan (1) Atrial fibrillation with RVR Current Visit: Yes Status: Acute (2) History of DVT (deep vein thrombosis) Current Visit: Yes Status: Acute (3) DVT prophylaxis Current Visit: Yes Status: Acute (4) Chest pain Current Visit: Yes Status: Resolved - Time Spent With Patient Total time spent is greater than 50% in coordination of care (as documented) at patient's floor/unit and/or counseling patient: - Constitutional Vitals: Temp Pulse Resp BP Pulse Ox 97.6 F 80 16 100/66 97 08/16/17 11:47 08/16/17 11:47 08/16/17 11:47 08/16/17 11:47 08/16/17 11:47 Internal Medicine: Result - Labs CBC & Chem 7: 08/16/17 03:50 08/16/17 03:50 Labs: Short CBC 08/16/17 Range/Units 03:50 WBC 11.2 H (4.3-11.1) K/mcL Hgb 15.1 (11.5-15.4) g/dL Hct 46.8 H (35.3-44.9) % Plt Count 343 (140-400) K/mcL Neutrophils # 7.8 (1.6-8.9) K/mcL BMP 08/16/17 03:50 Sodium 142 Potassium 3.9 Chloride 107 Carbon Dioxide 26 BUN 21 Creatinine 0.84 Glucose 95 Calcium 9.1 - ABG Interpretation ABG results: PT/INR, D-dimer PT 20.2 Seconds (9.4-12.1) H 08/16/17 03:50 - Attending Attestation I examined this patient and my medical decision-making was reviewed with the Resident Physician. I agree with the documented findings, disposition and treatment plan as described except to the extent set forth below. 81 F admitted for Afib with RVR, (paroxysmal), already on anticoagulation for DVT She complained of dyspnea on exertion this mrn, she is ambulatory and functional at home, she says her dypsnea is worse than her baseline, no cough, no chest pain, O2 sat on room air is WNL Chest was CTAB on exam, no pedal edema Labs and Imaging reviewed, Increase her dose of lasix, place on pulse ox and monitor rest of details as in the resident physician's documentation
[2017-08-16] MEDS ORDERED: Ondansetron ODT 4 MG TAB.RAPDIS SL ONE (12:03)
[2017-08-16] MEDS ORDERED: Ondansetron ODT 4 MG TAB.RAPDIS SL PRN (12:04)
[2017-08-16] MEDS ORDERED: *HR* Warfarin 7.5 MG TABLET PO SCH (18:00)
[2017-08-17 03:49] LABS: Basophils % 0.3 %; Eosinophils % 0.2 %; Hemoglobin 13.7 g/dL (11.5-15.4); Immature Granulocytes % 0.4 % (0-4); Lymphocytes # 1.7 K/mcL (0.6-4.6); Lymphocytes % 16.6 %; Mean Corpuscular HGB Conc 32.6 g/dL (31.6-35.5); Mean Corpuscular Hemoglobin 29.7 pg (28.0-33.3); Mean Corpuscular Volume 90.9 fL (83.0-100.0); Mean Platelet Volume 9.2 fL (9.4-12.4); Monocytes # 1.2 K/mcL (0.0-1.3); Monocytes % 11.7 %; Neutrophils # 7.2 K/mcL (1.6-8.9); Platelet Count 304 K/mcL (140-400); Red Blood Count 4.62 M/mcL (3.82-4.97); Segmented Neutrophils % 70.8 %
[2017-08-17 03:55] LABS: INR 2.3; Prothrombin Time 24.8 Seconds (9.4-12.1)
[2017-08-17 04:19] LABS: BUN/Creatinine Ratio 36 (6-26); Blood Urea Nitrogen 24 mg/dL (8-23); Calcium 8.6 mg/dL (8.6-10.3); Carbon Dioxide 23 mEq/L (23-29); Chloride 108 mEq/L (98-107); Glucose 97 mg/dL (70-105); Osmolality,Calculated 294 (280-300); Potassium 3.5 mEq/L (3.5-5.1); Sodium 140 mEq/L (136-145); eGFR For African Americans > 60 (> 60); eGFR For Non-African Americans > 60 (> 60)
[2017-08-17 07:33] VITALS: BP 110/72
[2017-08-17] MEDS: *HR* Digoxin 0.125 MG TABLET PO SCH (08:43)
[2017-08-17] MEDS: Aspirin Enteric Coated 81 MG Tablet PO SCH (08:43)
[2017-08-17] MEDS: Diltiazem CD (24hr) 120 MG CAPSULE PO SCH (08:44)
[2017-08-17] MEDS: Cholecalciferol (D-3) 1,000 UNIT TABLET PO SCH (08:44)
[2017-08-17] MEDS: Furosemide 40 MG TABLET PO SCH (08:44)
--- NOTE | 2017-08-17 09:10 | Internal Med Progress Note ---
Date of Encounter: 08/17/17 Time of Encounter: 08:00 - Assessment and plan (1) Atrial fibrillation with RVR Current Visit: Yes Status: Acute (2) History of DVT (deep vein thrombosis) Current Visit: Yes Status: Acute (3) Chest pain Current Visit: Yes Status: Resolved (4) DVT prophylaxis Current Visit: Yes Status: Acute - Time Spent With Patient Total time spent is greater than 50% in coordination of care (as documented) at patient's floor/unit and/or counseling patient: - Subjective Interval history: Had nausea/vomiting x1 episode yesterday afternoon which resolved with Zofran. No recurrent ACS symptoms otherwise such as chest pain, shortness of breath, diaphoresis, light headedness, or syncope. No exertional dyspnea ambulating with RN. HR within normal range. Patient inquires as to why her heart rate keeps going up; explained to patient and presence of her son that the heart rate is overall well-controlled despite it irregularity. Patient's true heart rate is in the 70 to 80 range. Expressed to patient that prior to any further consideration of cardioversion, underlying triggers need to be assessed and there is plan to do so on an outpatient basis with cardiology team. Patient and son have no further questions. - Constitutional Vitals: Temp Pulse Resp BP Pulse Ox 97.4 F L 95 16 110/72 95 08/17/17 07:30 08/17/17 07:30 08/17/17 07:30 08/17/17 07:30 08/17/17 07:30 General appearance: Present: A&O X 3, no acute distress, answers questions appropriately Internal Medicine: Result - Labs CBC & Chem 7: 08/17/17 03:32 08/17/17 03:32 Labs: Short CBC 08/17/17 Range/Units 03:32 WBC 10.1 (4.3-11.1) K/mcL Hgb 13.7 (11.5-15.4) g/dL Hct 42.0 (35.3-44.9) % Plt Count 304 (140-400) K/mcL Neutrophils # 7.2 (1.6-8.9) K/mcL BMP 08/17/17 03:32 Sodium 140 Potassium 3.5 Chloride 108 H Carbon Dioxide 23 BUN 24 H Creatinine 0.66 Glucose 97 Calcium 8.6 - ABG Interpretation ABG results: PT/INR, D-dimer PT 24.8 Seconds (9.4-12.1) H 08/17/17 03:32 Consult Discharge Plan - Plan Referrals: Marcelino Rosario Jr, MD [Primary Care Provider] - 08/23/17 10:00 am
--- NOTE | 2017-08-17 09:19 | Discharge Summary ---
<Chico Diana - Last Filed: 08/17/17 09:14> - NOTES TO OUTPATIENT PROVIDER Notes to Outpatient Provider: Admitted with a fib RVR with known diagnosis of PAF. Discharged on digoxin and PO Cardizem. Has scheduled follow-up with cardiology with plans to pursue sleep study and outpatient stress test. Patient is oriented coagulated on Coumadin and discharge INR was 2.3. Orders not resulted at time of discharge: Pending orders 08/18/17 04:00 Complete Blood Count [HEME] AM 0400 PT/INR [Prothrombin Time INR] [COAG] AM 0400 08/19/17 04:00 PT/INR [Prothrombin Time INR] [COAG] AM 04008/20/17 04:00 PT/INR [Prothrombin Time INR] [COAG] AM 0400 08/21/17 04:00 PT/INR [Prothrombin Time INR] [COAG] AM 0400 Date of Encounter: 08/17/17 Time of Encounter: 08:00 - Discharge Diagnosis (1) Atrial fibrillation with RVR Priority: Primary Status: Acute Assessment and Plan: Chronic pH; currently in persistent AF state. Opting for rate control & anticoagulation at this time with further outpatient cardiology follow-up. (2) Chest pain Priority: Primary Status: Resolved Qualifiers: Chest pain type: unspecified Qualified Code(s): R07.9 - Chest pain, unspecified (3) History of DVT (deep vein thrombosis) Priority: Secondary Status: Chronic Assessment and Plan: On warfarin. S/P IVC filter. (4) BMI 40.0-44.9, adult Priority: Secondary Status: Chronic Hospital course: Ms. Lewis is a 81 year old female with history of PAF, history of DVT status post IVC filter, on long-term warfarin therapy. She was initially admitted on for recurrent AF/RVR. Initially presented to [facility] and was transferred to [facility]. Initial presentation in the ED with heart rate 130s and was placed on Cardizem drip was steady improvement of heart rate. She is not reverted back to normal sinus rhythm. Initially have mild leukocytosis but no other signs of infection. Serial troponins were negative. Echo done on 08/14 demonstrates LVEF of 55%, severely dilated left atrium, mild tricuspid regurgitation, no pulmonary hypertension, and indeterminate diastolic function. Cardiology consulted recommended starting on digoxin and transition to Cardizem CD. Patient had symptoms of exertional dyspnea and singular episode of nausea/ vomiting on 08/16/17. The symptoms have abated with no recurrence; she has had no other symptoms including lightheadedness, syncope, diaphoresis, chest pain, subjective palpitations, shortness of breath, nausea, vomiting, abdominal pain, or pedal edema. Overall patient stable at this time with heart rate maintained within the 70 to 90 range. Answered all of patient's questions in the presence of her son who works in the [facility] [employer]. Patient is to follow-up with cardiology on outpatient basis for consideration of sleep study and stress test. Return precautions explained to patient and educational material provided. - Time Spent with Patient Total time spent providing and/or coordinating discharge services: - Discharge Medications Prescriptions: Digoxin [Lanoxin] 0.125 mg PO DAILY #30 tablet Diltiazem CD (24hr) [Cardizem CD] 120 mg PO DAILY #30 cap.er.24h Home Medications: HYDROcodone/Acet 5/325 mg [[place] 5-325 mg] 1 tab PO Q6H PRN #12 tab 10/19/15 [Rx ] Aspirin [Lo-Dose Aspirin EC] 81 mg PO DAILY 08/13/17 [History] Calcium Carbonate [Calcium] 1,000 mg PO DAILY 08/13/17 [History] Cholecalciferol (D-3) [Vitamin D] 1,000 unit PO DAILY 08/13/17 [History] Ferrous Sulfate [Iron] 325 mg PO DAILY 08/13/17 [History] Furosemide [Lasix] 40 mg PO TID 08/13/17 [History] Potassium &Magnesium Aspartate [Ra Potassium-Magnesium Asp 250] 1 each PO DAILY 08/13/17 [History] Spironolactone [Aldactone] 50 mg PO DAILY 08/13/17 [History] Warfarin [Coumadin] 7.5 mg PO DAILY 08/13/17 [History] Digoxin [Lanoxin] 0.125 mg PO DAILY #30 tablet 08/17/17 [Rx] Diltiazem CD (24hr) [Cardizem CD] 120 mg PO DAILY #30 cap.er.24h 08/17/17 [Rx] Warfarin [Coumadin] 7.5 mg PO DAILY@1800 tablet 08/17/17 [Rx] Allergies/Adverse Reactions: 3 Allergy/AdvReac Type Severity Reaction Status Date / Time Penicillins Allergy Hives Verified 08/13/17 10:58 Sulfa (Sulfonamide Allergy Swelling Verified 08/13/17 10:58 Antibiotics) of Lip/Tongue/Throat Date of admission: 08/12/17 23:01 Primary care physician: Marcelino Rosario Jr, MD Discharging clinician: Chico Diana Anticipated date of discharge: 08/17/17 - Constitutional Vitals: Temp Pulse Resp BP Pulse Ox 97.4 F L 95 16 110/72 95 08/17/17 07:30 08/17/17 07:30 08/17/17 07:30 08/17/17 07:30 08/17/17 07:30 CONSTITUTIONAL: Alert and oriented X3, well-nourished, well appearing, in no apparent distress HEAD: Normocephalic; atraumatic. EYES: PER, no scleral icterus, no drainage, no conjunctival injection NOSE: The nose is normal in appearance without rhinorrhea Oropharynx: pink/moist, no tonsillar edema/erythema/exudates RESP: apparently short of breath after ambulating from sink to bedside chair, lung sounds completely CTA b/l with no wheezes/rales/rhonchi CARD: irregularly irregular rhythm, without murmurs, rubs, or gallop; radial pulse palpated with rate in the 70s SKIN: normal appearance, no pallor/diaphoresis,mottling,jaundice,cyanosis EXT: Rad pulses 2+ and symmetrical; no lateralizing edema; no other lesions seen PSYCH: somewhat anxious affect, citing not comfortable with heart beating out of regular rhythm; questions were answered - Patient Status Disposition: Home, Self-Care Condition: Good Functional capacity at discharge: uses cane/walker Overall status at discharge: patient is progressing back to baseline - Discharge Instructions Instructions: Diltiazem (By mouth), Digoxin (By mouth), Atrial Fibrillation (DC ) Follow Up With: [facility] [Provider Group] - 09/19/17 9:30 am () Marcelino Rosario Jr, MD [Primary Care Provider] - 08/23/17 10:00 am Additional Instructions: Keep your appointment with your primary care provider follow-up with Coumadin clinic at your earliest available time take all medications as prescribed follow-up with cardiology on outpatient basis as scheduled review educational handout on atrial fibrillation [place] primary doctor or transit mixer driver for new or worsening symptoms including, but not limited to: unprovoked sweating, lightheadedness, dizziness, blacking out, chest pain, palpitations, shortness of breath at rest, nausea/vomiting, worsening weakness/fatigue, or worsening edema in your legs/feet. - Diet and Activity Activity: increase activity as tolerated, resume usual activities as tolerated Diet: low salt diet <Wilfredo Marie - Last Filed: 08/17/17 15:26> Date of Encounter: 08/17/17 - Discharge Diagnosis (1) Atrial fibrillation with RVR Status: Acute (2) History of DVT (deep vein thrombosis) Status: Chronic (3) Chest pain Status: Resolved (4) BMI 40.0-44.9, adult Status: Chronic Hospital course: Ms. Lewis is a 81 year old female - Time Spent with Patient Total time spent providing and/or coordinating discharge services: Greater than 30 minutes Date of admission: 08/12/17 23:01 Primary care physician: Marcelino Rosario Jr, MD - Constitutional Vitals: Temp Pulse Resp BP Pulse Ox 97.4 F L 95 16 110/72 95 08/17/17 07:30 08/17/17 07:30 08/17/17 07:30 08/17/17 07:30 08/17/17 07:30 - Attending Attestation I examined this patient 08/17, and my medical decision-making was reviewed with the Resident Physician. I agree with the documented findings, disposition and treatment plan as described except to the extent set forth below. Patient has no new complaints. She reports shortness of breath has improved. She was ambulatory, tolerating already, has no chest pain, has no shortness of breath. Heart rate is controlled on current medications. Oxygen saturation is acceptable on room air. No pedal edema on exam. Patient is clinically stable to be discharged home with the current medications. Plan of care discussed with the patient verbalized understanding. Follow-up with primary care physician and transit mixer driver. Rest of details as in the resident physicians documentation.
[2017-08-17] MEDS: *HR* HYDROcodone/Acet 5/325 mg TABLET PO PRN (14:24)
== END 2017-08-17 15:06 | disposition home or self-care (01) ==
LOC: 2NENU → SUATTDRO 23:01
PROVIDERS: ADMIT Internal Medicine; ATTEND Internal Medicine

== ENCOUNTER 2019-01-10 21:11 | Observation (INO) ==
[2019-01-10] MEDS ORDERED: Pantoprazole 40 MG VIAL IVP ONE (21:36)
[2019-01-10] MEDS ORDERED: Isovue-370 500 ML BOTTLE IVP ONE (21:40)
[2019-01-10 23:17] LABS: Basophils % 0.2 %; Hematocrit 27.9 % (35.3-44.9); Hemoglobin 8.9 g/dL (11.5-15.4); Immature Granulocytes % 2.3 % (0-4); Lymphocytes # 1.7 K/mcL (0.6-4.6); Lymphocytes % 7.5 %; Mean Corpuscular HGB Conc 31.9 g/dL (31.6-35.5); Mean Corpuscular Hemoglobin 30.2 pg (28.0-33.3); Mean Corpuscular Volume 94.6 fL (83.0-100.0); Mean Platelet Volume 9.2 fL (9.4-12.4); Monocytes # 1.6 K/mcL (0.0-1.3); Monocytes % 6.9 %; Neutrophils # 18.8 K/mcL (1.6-8.9); Platelet Count 298 K/mcL (140-400); Red Blood Count 2.95 M/mcL (3.82-4.97); Red Cell Distribution Width 14.2 % (11.5-14.5); Segmented Neutrophils % 83.1 %; White Blood Count 22.6 K/mcL (4.3-11.1)
[2019-01-10 23:36] LABS: Alanine Aminotransferase 20 Units/L (7-52); Albumin 3.7 g/dL (3.5-5.7); Albumin/Globulin Ratio 1.5 (1.1-2.2); Alkaline Phosphatase 52 Units/L (34-104); Aspartate Amino Transferase 13 Units/L (13-39); BUN/Creatinine Ratio 59 (6-26); Bilirubin,Direct 0.1 mg/dL (0.0-0.2); Bilirubin,Indirect 0.3 mg/dL (0.0-1.2); Bilirubin,Total 0.4 mg/dL (0.3-1.0); Blood Urea Nitrogen 59 mg/dL (8-23); Carbon Dioxide 22 mEq/L (23-29); Chloride 105 mEq/L (98-107); Globulin 2.5 g/dL (2.4-3.5); Glucose 107 mg/dL (70-105); Osmolality,Calculated 297 (280-300); Potassium 4.7 mEq/L (3.5-5.1); Sodium 135 mEq/L (136-145); Total Protein 6.2 g/dL (6.4-8.9); eGFR For African Americans > 60 (> 60); eGFR For Non-African Americans 53 (> 60)
[2019-01-10] MEDS ORDERED: 0.9 % Sodium Chloride 1,000 ML IVC ONE (23:42)
[2019-01-11] LABS: INR 3.8
[2019-01-11 00:03] LABS: Activated Partial Thrombo Time 39.4 Seconds (26.0-36.0)
[2019-01-11] MEDS ORDERED: *HR* Phytonadione 5 MG TABLET PO ONE (00:09)
[2019-01-11] MEDS: 0.9 % Sodium Chloride 1,000 ML IVC SCH ×2 (03:37→19:39)
[2019-01-11 04:31] LABS: Basophils % 0.1 %; Eosinophils % 0.1 %; Hematocrit 23.9 % (35.3-44.9); Hemoglobin 7.8 g/dL (11.5-15.4); Lymphocytes # 1.6 K/mcL (0.6-4.6); Lymphocytes % 9.8 %; Mean Corpuscular HGB Conc 32.6 g/dL (31.6-35.5); Mean Corpuscular Hemoglobin 30.4 pg (28.0-33.3); Mean Platelet Volume 9.5 fL (9.4-12.4); Monocytes # 1.2 K/mcL (0.0-1.3); Neutrophils # 13.6 K/mcL (1.6-8.9); Platelet Count 259 K/mcL (140-400); Red Blood Count 2.57 M/mcL (3.82-4.97); Red Cell Distribution Width 14.3 % (11.5-14.5); White Blood Count 16.8 K/mcL (4.3-11.1)
[2019-01-11 04:40] LABS: INR 3.6; Prothrombin Time 40.5 Seconds (9.4-12.1)
[2019-01-11 04:54] LABS: Alanine Aminotransferase 15 Units/L (7-52); Albumin 3.2 g/dL (3.5-5.7); Albumin/Globulin Ratio 1.5 (1.1-2.2); Alkaline Phosphatase 45 Units/L (34-104); Aspartate Amino Transferase 11 Units/L (13-39); BUN/Creatinine Ratio 66 (6-26); Bilirubin,Total 0.3 mg/dL (0.3-1.0); Blood Urea Nitrogen 49 mg/dL (8-23); Calcium 8.2 mg/dL (8.6-10.3); Carbon Dioxide 20 mEq/L (23-29); Chloride 110 mEq/L (98-107); Globulin 2.1 g/dL (2.4-3.5); Glucose 102 mg/dL (70-105); Osmolality,Calculated 295 (280-300); Potassium 4.6 mEq/L (3.5-5.1); Sodium 136 mEq/L (136-145); Total Protein 5.3 g/dL (6.4-8.9); eGFR For African Americans > 60 (> 60); eGFR For Non-African Americans > 60 (> 60)
[2019-01-11] MEDS ORDERED: *HR* Metoprolol 5 MG/5 ML VIAL IVP ONE (05:57)
[2019-01-11 05:58] LABS: Thyroid Stimulating Hormone 2.158 mcIU/mL (0.340-5.600)
[2019-01-11] MEDS: Pantoprazole 40 MG VIAL IVP SCH ×2 (06:21→17:55)
[2019-01-11] MEDS ORDERED: 0.9 % Sodium Chloride 250 ML ONE (06:28)
[2019-01-11] MEDS ORDERED: 0.9 % Sodium Chloride 1,000 ML IVC ONE (09:20)
[2019-01-11] MEDS ORDERED: 0.9 % Sodium Chloride Mini Bag 100 ML ONE (10:00)
[2019-01-11] MEDS ORDERED: 0.9 % Sodium Chloride 250 ML IVC SCH (11:00)
[2019-01-11 14:40] LABS: Hematocrit 29.2 % (35.3-44.9); Hemoglobin 9.2 g/dL (11.5-15.4)
[2019-01-11] MEDS: *HR* HYDROcodone/Acet 5/325 mg TABLET PO PRN (15:36)
[2019-01-12] MEDS: *HR* HYDROcodone/Acet 5/325 mg TABLET PO PRN ×3 (00:15→18:28)
[2019-01-12] MEDS: Pantoprazole 40 MG VIAL IVP SCH ×2 (05:13→18:28)
[2019-01-12] MEDS: 0.9 % Sodium Chloride 1,000 ML IVC SCH (08:23)
[2019-01-12 10:53] LABS: Basophils % 0.2 %; Eosinophils % 0.3 %; Hematocrit 27.3 % (35.3-44.9); Hemoglobin 8.4 g/dL (11.5-15.4); Immature Granulocytes % 1.2 % (0-4); Lymphocytes # 1.2 K/mcL (0.6-4.6); Mean Corpuscular HGB Conc 30.8 g/dL (31.6-35.5); Mean Corpuscular Hemoglobin 29.6 pg (28.0-33.3); Mean Corpuscular Volume 96.1 fL (83.0-100.0); Mean Platelet Volume 9.3 fL (9.4-12.4); Monocytes # 1.1 K/mcL (0.0-1.3); Monocytes % 9.3 %; Neutrophils # 8.8 K/mcL (1.6-8.9); Platelet Count 262 K/mcL (140-400); Red Blood Count 2.84 M/mcL (3.82-4.97); Red Cell Distribution Width 15.7 % (11.5-14.5); White Blood Count 11.3 K/mcL (4.3-11.1)
[2019-01-12 11:10] LABS: Alanine Aminotransferase 20 Units/L (7-52); Albumin 3.4 g/dL (3.5-5.7); Albumin/Globulin Ratio 1.4 (1.1-2.2); Alkaline Phosphatase 50 Units/L (34-104); Aspartate Amino Transferase 17 Units/L (13-39); BUN/Creatinine Ratio 29 (6-26); Bilirubin,Total 0.6 mg/dL (0.3-1.0); Blood Urea Nitrogen 18 mg/dL (8-23); Calcium 8.5 mg/dL (8.6-10.3); Carbon Dioxide 22 mEq/L (23-29); Chloride 111 mEq/L (98-107); Globulin 2.4 g/dL (2.4-3.5); Glucose 99 mg/dL (70-105); Osmolality,Calculated 288 (280-300); Potassium 4.1 mEq/L (3.5-5.1); Sodium 138 mEq/L (136-145); Total Protein 5.8 g/dL (6.4-8.9); eGFR For African Americans > 60 (> 60); eGFR For Non-African Americans > 60 (> 60)
[2019-01-12 11:16] LABS: INR 1.2; Prothrombin Time 13.9 Seconds (9.4-12.1)
[2019-01-12] MEDS ORDERED: Ringers Solution, Lactated 500 ML IVC ONE (15:04)
[2019-01-12] MEDS ORDERED: Ringers Solution, Lactated 1,000 ML IVC SCH (15:15)
[2019-01-12] MEDS: Furosemide 40 MG TABLET PO SCH (15:22)
[2019-01-13] MEDS: *HR* HYDROcodone/Acet 5/325 mg TABLET PO PRN ×2 (02:32→11:08)
[2019-01-13] MEDS: Pantoprazole 40 MG VIAL IVP SCH ×2 (04:59→18:23)
[2019-01-13 06:31] LABS: Basophils % 0.1 %; Eosinophils % 0.4 %; Hematocrit 28.3 % (35.3-44.9); Hemoglobin 8.9 g/dL (11.5-15.4); Immature Granulocytes % 1.3 % (0-4); Lymphocytes # 1.5 K/mcL (0.6-4.6); Lymphocytes % 14.7 %; Mean Corpuscular HGB Conc 31.4 g/dL (31.6-35.5); Mean Corpuscular Volume 95.3 fL (83.0-100.0); Mean Platelet Volume 9.4 fL (9.4-12.4); Neutrophils # 7.3 K/mcL (1.6-8.9); Platelet Count 297 K/mcL (140-400); Red Blood Count 2.97 M/mcL (3.82-4.97); Red Cell Distribution Width 15.2 % (11.5-14.5); Segmented Neutrophils % 73.5 %
[2019-01-13 06:50] LABS: BUN/Creatinine Ratio 15 (6-26); Blood Urea Nitrogen 9 mg/dL (8-23); Calcium 9.1 mg/dL (8.6-10.3); Carbon Dioxide 24 mEq/L (23-29); Chloride 114 mEq/L (98-107); Glucose 100 mg/dL (70-105); Osmolality,Calculated 289 (280-300); Sodium 140 mEq/L (136-145); eGFR For African Americans > 60 (> 60); eGFR For Non-African Americans > 60 (> 60)
[2019-01-13] MEDS: Diltiazem CD (24hr) 180 MG CAPSULE PO SCH (09:14)
[2019-01-13] MEDS ORDERED: *HR* HYDROcodone/Acet 5/325 mg TABLET PO PRN (12:24)
[2019-01-13] MEDS ORDERED: ALPRAZolam 0.25 MG TABLET PO PRN (12:24)
[2019-01-13] MEDS ORDERED: *HR* FentaNYL (PF) 100 MCG/2 ML VIAL ONE (13:03)
[2019-01-13] MEDS ORDERED: *HR* Midazolam HCl 5 MG/5 ML VIAL IVP ONE (13:04)
[2019-01-13] MEDS: *HR* FentaNYL (PF) 100 MCG/2 ML VIAL IVP ONE ×3 (13:35→14:20)
[2019-01-13] MEDS: *HR* Midazolam HCl 5 MG/5 ML VIAL IVP ONE ×3 (13:35→14:15)
[2019-01-13] MEDS: Sucralfate 1 GM TABLET PO SCH ×2 (17:33→20:56)
[2019-01-14] MEDS: Sucralfate 1 GM TABLET PO SCH ×3 (06:25→16:32)
[2019-01-14] MEDS: Pantoprazole 40 MG VIAL IVP SCH (06:25)
[2019-01-14 06:28] LABS: Hematocrit 26.7 % (35.3-44.9); Hemoglobin 8.4 g/dL (11.5-15.4); Mean Corpuscular HGB Conc 31.5 g/dL (31.6-35.5); Mean Corpuscular Hemoglobin 30.1 pg (28.0-33.3); Mean Corpuscular Volume 95.7 fL (83.0-100.0); Mean Platelet Volume 9.3 fL (9.4-12.4); Platelet Count 290 K/mcL (140-400); Red Blood Count 2.79 M/mcL (3.82-4.97); White Blood Count 10.8 K/mcL (4.3-11.1)
[2019-01-14 06:45] LABS: BUN/Creatinine Ratio 15 (6-26); Blood Urea Nitrogen 11 mg/dL (8-23); Calcium 8.9 mg/dL (8.6-10.3); Carbon Dioxide 25 mEq/L (23-29); Chloride 112 mEq/L (98-107); Glucose 96 mg/dL (70-105); Magnesium 1.9 mg/dL (1.6-2.6); Osmolality,Calculated 287 (280-300); Sodium 139 mEq/L (136-145); eGFR For African Americans > 60 (> 60); eGFR For Non-African Americans > 60 (> 60)
[2019-01-14 06:49] LABS: INR 1.1; Prothrombin Time 12.5 Seconds (9.4-12.1)
[2019-01-14] MEDS ORDERED: Aspirin Enteric Coated 81 MG Tablet PO SCH (09:00)
[2019-01-14] MEDS ORDERED: Diltiazem CD (24hr) 180 MG CAPSULE PO SCH (09:00)
[2019-01-14] MEDS ORDERED: Loratadine 10 MG TABLET PO SCH (09:00)
[2019-01-14] MEDS ORDERED: 0.9 % Sodium Chloride 250 ML IVC SCH (09:45)
[2019-01-14] MEDS: Furosemide 40 MG TABLET PO SCH ×3 (09:52→16:58)
[2019-01-14] MEDS: Diltiazem CD (24hr) 180 MG CAPSULE PO SCH (09:52)
[2019-01-14 16:28] VITALS: BP 103/68
== END 2019-01-14 17:54 | disposition home or self-care (01) ==
LOC: EMEROOARM 21:11 → 3ANU 21:11 → SUATTDRO 01-11 02:08 → 3ANU 01-11 02:37
PROVIDERS: ADMIT Internal Medicine; ATTEND Internal Medicine
PROC: ENDOCBX (2019-01-13 09:00)

== ENCOUNTER 2020-03-18 02:35 | Observation (INO) ==
[2020-03-18] MEDS ORDERED: Ondansetron 4 MG/2 ML VIAL IVP PRN (09:24)
[2020-03-18] MEDS ORDERED: Naloxone 0.4 MG/ML INJ IVP PRN (09:24)
[2020-03-18] MEDS ORDERED: *HR* HYDROcodone/Acet 5/325 mg TABLET PO PRN (09:24)
[2020-03-18] MEDS ORDERED: *HR* Dextrose 50 % in Water (Vial) 50 ML VIAL IVP PRN (09:27)
[2020-03-18] MEDS ORDERED: D5% in Water 1,000 ML IVC PRN (09:27)
[2020-03-18] MEDS ORDERED: Dextrose Gel 15 GM/37.5 ML TUBE PO PRN ×2 (09:27)
[2020-03-18 10:12] LABS: INR 2.3; Prothrombin Time 26.2 Seconds (9.4-12.1)
[2020-03-18 10:14] LABS: Activated Partial Thrombo Time 30.3 Seconds (26.0-36.0)
[2020-03-18 10:18] LABS: Basophils # 0.1 K/mcL (0.0-0.2); Basophils % 0.4 %; Eosinophils % 0.1 %; Hematocrit 40.1 % (35.3-44.9); Hemoglobin 12.7 g/dL (11.5-15.4); Immature Granulocytes % 0.3 % (0-4); Lymphocytes # 0.9 K/mcL (0.6-4.6); Lymphocytes % 6.2 %; Mean Corpuscular HGB Conc 31.7 g/dL (31.6-35.5); Mean Corpuscular Hemoglobin 29.4 pg (28.0-33.3); Mean Corpuscular Volume 92.8 fL (83.0-100.0); Mean Platelet Volume 9.6 fL (9.4-12.4); Monocytes # 1.3 K/mcL (0.0-1.3); Monocytes % 8.8 %; Neutrophils # 11.9 K/mcL (1.6-8.9); Platelet Count 289 K/mcL (140-400); Red Blood Count 4.32 M/mcL (3.82-4.97); Red Cell Distribution Width 13.3 % (11.5-14.5); Segmented Neutrophils % 84.2 %; White Blood Count 14.2 K/mcL (4.3-11.1)
[2020-03-18 10:24] LABS: Troponin I 0.03 ng/mL (< 0.04)
[2020-03-18 10:42] LABS: Alanine Aminotransferase 17 Units/L (7-52); Albumin/Globulin Ratio 1.5 (1.1-2.2); Alkaline Phosphatase 73 Units/L (34-104); Aspartate Amino Transferase 19 Units/L (13-39); BUN/Creatinine Ratio 22 (6-26); Blood Urea Nitrogen 22 mg/dL (8-23); C-Reactive Protein 40 mg/L (Less than 10); Calcium 9.3 mg/dL (8.6-10.3); Carbon Dioxide 20 mEq/L (23-29); Chloride 107 mEq/L (98-107); Globulin 2.7 g/dL (2.4-3.5); Glucose 130 mg/dL (70-105); Magnesium 1.8 mg/dL (1.6-2.6); Osmolality,Calculated 291 (280-300); Phosphorous 3.5 mg/dL (2.7-4.5); Potassium 4.4 mEq/L (3.5-5.1); Sodium 138 mEq/L (136-145); Total Protein 6.7 g/dL (6.4-8.9); eGFR For African Americans > 60 (> 60); eGFR For Non-African Americans 52 (> 60)
[2020-03-18] MEDS ORDERED: Ringers Solution, Lactated 1,000 ML IVC SCH (11:00)
[2020-03-18] MEDS: *HR* OxyCODONE Immed Rel 5 MG TABLET PO PRN ×2 (11:51→21:52)
[2020-03-18] MEDS: Clindamycin 600 MG/50 ML 600 MG/50 ML IV.SOLN IVPB SCH ×2 (11:52→19:02)
[2020-03-18] MEDS ORDERED: ALPRAZolam 0.25 MG TABLET PO PRN (17:10)
[2020-03-18] MEDS: Insulin LISPRO 300 UNITS/3 ML VIAL SQ SCH ×2 (19:02→19:05)
[2020-03-19] MEDS: Clindamycin 600 MG/50 ML 600 MG/50 ML IV.SOLN IVPB SCH ×3 (01:01→16:02)
[2020-03-19 05:42] LABS: Adenovirus Not Detected (Not Detect); Bordetella Pertussis Not Detected (Not Detect); Chlamydophila pneumoniae Not Detected (Not Detect); Coronavirus 229E Not Detected (Not Detect); Coronavirus HKU1 Not Detected (Not Detect); Coronavirus NL63 Not Detected (Not Detect); Coronavirus OC43 Not Detected (Not Detect); Human Metapneumovirus Not Detected (Not Detect); Human Rhinovirus/Enterovirus Not Detected (Not Detect); Influenza A Subtype 2009 H1 Not Detected (Not Detect); Influenza B Not Detected (Not Detect); Mycoplasma pneumoniae Not Detected (Not Detect); Parainfluenza Virus 1 Not Detected (Not Detect); Parainfluenza Virus 2 Not Detected (Not Detect); Parainfluenza Virus 3 Not Detected (Not Detect); Parainfluenza Virus 4 Not Detected (Not Detect); Respiratory Syncytial Virus Not Detected (Not Detect); SARS-CoV-2 Not Detected (Not Detect)
[2020-03-19] MEDS: Insulin LISPRO 300 UNITS/3 ML VIAL SQ SCH ×3 (06:23→20:17)
[2020-03-19] MEDS: *HR* OxyCODONE Immed Rel 5 MG TABLET PO PRN (08:36)
[2020-03-19] MEDS ORDERED: Cholecalciferol (D-3) 1,000 UNIT (25MCG) TABLET PO SCH (09:00)
[2020-03-19] MEDS ORDERED: DilTIAZem CD (24hr) 180 MG CAP.ER.24H PO SCH (09:00)
[2020-03-19] MEDS ORDERED: Aspirin Enteric Coated 81 MG Tablet PO SCH (09:00)
[2020-03-19] MEDS ORDERED: Loratadine 10 MG TABLET PO SCH (09:00)
[2020-03-19] MEDS ORDERED: *HR* HYDROmorphone PF 0.5 MG/0.5 ML SYRINGE IVP PRN ×2 (17:24→20:43)
[2020-03-19] MEDS ORDERED: *HR* FentaNYL (PF) 100 MCG/2 ML VIAL ONE (17:31)
[2020-03-19] MEDS ORDERED: *HR* Propofol 200 MG/20 ML VIAL IVP ONE (17:33)
[2020-03-19] MEDS ORDERED: *HR* Succinylcholine 200 MG/10 ML VIAL IVP ONE (17:34)
[2020-03-19] MEDS ORDERED: Lidocaine -MPF 2% 2 ML VIAL ONE (17:34)
[2020-03-19] MEDS ORDERED: Clindamycin 900 MG/50 ML 900 MG/50 ML IV.SOLN IVPB ONE ×2 (17:44→18:38)
[2020-03-19] MEDS ORDERED: Dexamethasone 4 MG/ML VIAL ONE (18:02)
[2020-03-19] MEDS ORDERED: Ondansetron 4 MG/2 ML VIAL ONE (18:02)
[2020-03-19] MEDS ORDERED: *HR* PHENYLEPHRINE 1,000 MCG/10 ML SYRINGE IVP ONE (18:36)
[2020-03-19] MEDS ORDERED: Ropivacaine/PF 0.5% 30 ML VIAL ONE (18:54)
[2020-03-19] MEDS ORDERED: ALPRAZolam 0.25 MG TABLET PO PRN (20:43)
[2020-03-19] MEDS ORDERED: Ondansetron 4 MG/2 ML VIAL IVP PRN (20:43)
[2020-03-19] MEDS ORDERED: D5% in Water 1,000 ML IVC PRN (20:43)
[2020-03-19] MEDS ORDERED: *HR* Dextrose 50 % in Water (Vial) 50 ML VIAL IVP PRN (20:43)
[2020-03-19] MEDS ORDERED: Naloxone 0.4 MG/ML INJ IVP PRN (20:43)
[2020-03-19] MEDS ORDERED: Dextrose Gel 15 GM/37.5 ML TUBE PO PRN ×2 (20:43)
[2020-03-20] MEDS: Clindamycin 600 MG/50 ML 600 MG/50 ML IV.SOLN IVPB SCH ×3 (00:40→15:17)
[2020-03-20] MEDS: *HR* HYDROcodone/Acet 5/325 mg TABLET PO PRN ×3 (00:41→15:34)
[2020-03-20] MEDS: Insulin LISPRO 300 UNITS/3 ML VIAL SQ SCH ×4 (00:46→16:56)
[2020-03-20 05:42] LABS: Hematocrit 32.9 % (35.3-44.9); Immature Granulocytes % 0.4 % (0-4); Lymphocytes # 0.5 K/mcL (0.6-4.6); Lymphocytes % 5.2 %; Mean Corpuscular HGB Conc 30.4 g/dL (31.6-35.5); Mean Corpuscular Hemoglobin 29.4 pg (28.0-33.3); Mean Corpuscular Volume 96.8 fL (83.0-100.0); Mean Platelet Volume 9.7 fL (9.4-12.4); Monocytes # 0.9 K/mcL (0.0-1.3); Monocytes % 8.9 %; Neutrophils # 8.5 K/mcL (1.6-8.9); Platelet Count 216 K/mcL (140-400); Red Cell Distribution Width 13.4 % (11.5-14.5); Segmented Neutrophils % 85.5 %; White Blood Count 9.9 K/mcL (4.3-11.1)
[2020-03-20 05:47] LABS: Bacteria,Urine Few per hpf (None-Few); Bilirubin,Urine Negative (Negative); Blood,Urine Small (Negative); Clarity,Urine Clear (Clear); Color,Urine Yellow (Yellow); Glucose,Urine (UA) Normal (Normal); Hyaline Casts,Urine Many per lpf (None Seen); Ketones,Urine 10 mg/dL (Negative); Leukocyte Esterase,Urine Moderate (Negative); Mucus,Urine Few per lpf (None-Few); Nitrite,Urine Negative (Negative); PH,Urine 5.5 pH Units (5.0-8.0); Protein,Urine 30 mg/dL (Neg-Trace); Specific Gravity,Urine 1.023 (1.010-1.025); Squamous Epithelial Cell,Urine Few per hpf (None-Few); Urobilinogen,Urine Normal (Normal); WBC,Urine 30-50 per hpf (0-3)
[2020-03-20 06:09] LABS: BUN/Creatinine Ratio 25 (6-26); Blood Urea Nitrogen 26 mg/dL (8-23); Calcium 8.4 mg/dL (8.6-10.3); Carbon Dioxide 24 mEq/L (23-29); Chloride 105 mEq/L (98-107); Glucose 115 mg/dL (70-105); Osmolality,Calculated 292 (280-300); Potassium 5.1 mEq/L (3.5-5.1); Sodium 138 mEq/L (136-145); eGFR For African Americans > 60 (> 60); eGFR For Non-African Americans 51 (> 60)
[2020-03-20] MEDS: DilTIAZem CD (24hr) 180 MG CAP.ER.24H PO SCH (07:53)
[2020-03-20] MEDS: Cholecalciferol (D-3) 1,000 UNIT (25MCG) TABLET PO SCH (07:53)
[2020-03-20] MEDS: Aspirin Enteric Coated 81 MG Tablet PO SCH (07:53)
[2020-03-20] MEDS: Loratadine 10 MG TABLET PO SCH (07:54)
[2020-03-20] MEDS: *HR* OxyCODONE Immed Rel 5 MG TABLET PO PRN (10:37)
[2020-03-20 11:36] LABS: INR 1.9; Prothrombin Time 21.8 Seconds (9.4-12.1)
[2020-03-20] MEDS ORDERED: *HR* Heparin 5,000 UNIT/ML VIAL IVP ONE (13:06)
[2020-03-20] MEDS ORDERED: *HR* Heparin 5,000 UNIT/ML VIAL IVP PRN ×2 (13:06)
[2020-03-20] MEDS ORDERED: Heparin 25,000UNIT/250ML 1/2NS 25,000 UNIT/250 ML IV.SOLN IVC SCH (13:15)
[2020-03-20] MEDS: Furosemide 40 MG TABLET PO SCH (15:30)
[2020-03-20 15:52] LABS: Heparin anti-factor XA UFH < 0.04 IU/mL (0.30-0.70); Prothrombin Time 23.2 Seconds (9.4-12.1)
[2020-03-20 15:57] LABS: Hematocrit 33.2 % (35.3-44.9); Hemoglobin 10.3 g/dL (11.5-15.4); Mean Corpuscular Hemoglobin 29.7 pg (28.0-33.3); Mean Corpuscular Volume 95.7 fL (83.0-100.0); Mean Platelet Volume 10.1 fL (9.4-12.4); Platelet Count 262 K/mcL (140-400); Red Blood Count 3.47 M/mcL (3.82-4.97); Red Cell Distribution Width 13.3 % (11.5-14.5); White Blood Count 11.6 K/mcL (4.3-11.1)
[2020-03-20] MEDS ORDERED: *HR* Warfarin 7.5 MG TABLET PO ONE (18:00)
[2020-03-20] MEDS ORDERED: Warfarin perPT PO PRN (18:00)
[2020-03-20] MEDS ORDERED: Albumin 25% 25gram/100mL 25 GM/100 ML IV.SOLN IVPB ONE (21:49)
[2020-03-21] MEDS: Acetaminophen 325 MG TABLET PO PRN (00:36)
[2020-03-21] MEDS: Insulin LISPRO 300 UNITS/3 ML VIAL SQ SCH ×4 (00:37→17:47)
[2020-03-21] MEDS: Clindamycin 600 MG/50 ML 600 MG/50 ML IV.SOLN IVPB SCH (00:46)
[2020-03-21 04:06] LABS: INR 2.4; Prothrombin Time 26.6 Seconds (9.4-12.1)
[2020-03-21 04:09] LABS: Basophils % 0.2 %; Eosinophils % 0.1 %; Hematocrit 28.7 % (35.3-44.9); Immature Granulocytes % 0.4 % (0-4); Lymphocytes # 0.6 K/mcL (0.6-4.6); Lymphocytes % 6.6 %; Mean Corpuscular HGB Conc 31.4 g/dL (31.6-35.5); Mean Corpuscular Volume 95.7 fL (83.0-100.0); Mean Platelet Volume 10.5 fL (9.4-12.4); Monocytes % 10.8 %; Neutrophils # 7.8 K/mcL (1.6-8.9); Platelet Count 231 K/mcL (140-400); Red Cell Distribution Width 13.5 % (11.5-14.5); Segmented Neutrophils % 81.9 %; White Blood Count 9.5 K/mcL (4.3-11.1)
[2020-03-21 04:18] LABS: Calcium 8.2 mg/dL (8.6-10.3); Potassium 4.3 mEq/L (3.5-5.1)
[2020-03-21] MEDS: *HR* HYDROcodone/Acet 5/325 mg TABLET PO PRN ×2 (06:12→15:54)
[2020-03-21] MEDS: *HR* OxyCODONE Immed Rel 5 MG TABLET PO PRN ×2 (09:52→21:41)
[2020-03-21] MEDS: Aspirin Enteric Coated 81 MG Tablet PO SCH (09:53)
[2020-03-21] MEDS: DilTIAZem CD (24hr) 180 MG CAP.ER.24H PO SCH (09:53)
[2020-03-21] MEDS: Furosemide 40 MG TABLET PO SCH (09:53)
[2020-03-21] MEDS: Loratadine 10 MG TABLET PO SCH (09:53)
[2020-03-21] MEDS: Cholecalciferol (D-3) 1,000 UNIT (25MCG) TABLET PO SCH (09:53)
[2020-03-21] MEDS ORDERED: *HR* Warfarin 4 MG TABLET PO ONE (18:00)
[2020-03-22] MEDS: Insulin LISPRO 300 UNITS/3 ML VIAL SQ SCH ×4 (00:52→18:04)
[2020-03-22] MEDS: *HR* OxyCODONE Immed Rel 5 MG TABLET PO PRN (03:50)
[2020-03-22 04:30] LABS: Hematocrit 29.6 % (35.3-44.9); Hemoglobin 9.1 g/dL (11.5-15.4); Mean Corpuscular HGB Conc 30.7 g/dL (31.6-35.5); Mean Corpuscular Hemoglobin 29.7 pg (28.0-33.3); Mean Corpuscular Volume 96.7 fL (83.0-100.0); Mean Platelet Volume 10.5 fL (9.4-12.4); Platelet Count 265 K/mcL (140-400); Red Blood Count 3.06 M/mcL (3.82-4.97); Red Cell Distribution Width 13.9 % (11.5-14.5); White Blood Count 8.2 K/mcL (4.3-11.1)
[2020-03-22 04:31] LABS: INR 2.6
[2020-03-22 04:39] LABS: BUN/Creatinine Ratio 38 (6-26); Blood Urea Nitrogen 36 mg/dL (8-23); Calcium 8.6 mg/dL (8.6-10.3); Carbon Dioxide 27 mEq/L (23-29); Chloride 107 mEq/L (98-107); Glucose 101 mg/dL (70-105); Osmolality,Calculated 296 (280-300); Potassium 4.3 mEq/L (3.5-5.1); Sodium 139 mEq/L (136-145); eGFR For African Americans > 60 (> 60); eGFR For Non-African Americans 55 (> 60)
[2020-03-22] MEDS: Furosemide 40 MG TABLET PO SCH (08:38)
[2020-03-22] MEDS: Aspirin Enteric Coated 81 MG Tablet PO SCH (08:41)
[2020-03-22] MEDS: Loratadine 10 MG TABLET PO SCH (08:41)
[2020-03-22] MEDS: *HR* HYDROcodone/Acet 5/325 mg TABLET PO PRN ×2 (08:41→17:24)
[2020-03-22] MEDS: DilTIAZem CD (24hr) 180 MG CAP.ER.24H PO SCH (08:41)
[2020-03-22] MEDS: Cholecalciferol (D-3) 1,000 UNIT (25MCG) TABLET PO SCH (08:41)
[2020-03-22] MEDS ORDERED: Clindamycin 300 MG/50 ML 300 MG/50 ML IV.SOLN IVPB SCH (12:00)
[2020-03-22] MEDS: Lactobacillus 1 EACH CAP.SPRINK PO SCH ×2 (12:24→21:28)
[2020-03-22] MEDS: Furosemide 40 MG/4 ML VIAL IVP SCH ×2 (12:24→21:28)
[2020-03-22] MEDS ORDERED: *HR* Warfarin 4 MG TABLET PO ONE (18:00)
[2020-03-22] MEDS: DilTIAZem 50 MG/50 ML IV.SOLN IVC SCH (18:45)
[2020-03-22] MEDS: Clindamycin 300 MG/50 ML 300 MG/50 ML IV.SOLN IVPB SCH (21:28)
[2020-03-23] MEDS: *HR* HYDROcodone/Acet 5/325 mg TABLET PO PRN ×2 (01:48→09:00)
[2020-03-23] MEDS: DilTIAZem 50 MG/50 ML IV.SOLN IVC SCH (01:50)
[2020-03-23] MEDS: Clindamycin 300 MG/50 ML 300 MG/50 ML IV.SOLN IVPB SCH ×3 (06:10→21:20)
[2020-03-23 06:39] LABS: INR 1.8; Prothrombin Time 20.4 Seconds (9.4-12.1)
[2020-03-23] MEDS: DilTIAZem CD (24hr) 240 MG CAP.ER.24H PO SCH (08:58)
[2020-03-23] MEDS: Loratadine 10 MG TABLET PO SCH (08:58)
[2020-03-23] MEDS: Aspirin Enteric Coated 81 MG Tablet PO SCH (08:58)
[2020-03-23] MEDS: Lactobacillus 1 EACH CAP.SPRINK PO SCH ×2 (08:58→21:20)
[2020-03-23] MEDS: Furosemide 40 MG/4 ML VIAL IVP SCH ×2 (08:58→21:19)
[2020-03-23] MEDS: Cholecalciferol (D-3) 1,000 UNIT (25MCG) TABLET PO SCH (08:58)
[2020-03-23] MEDS ORDERED: DilTIAZem CD (24hr) 240 MG CAP.ER.24H PO SCH (09:00)
[2020-03-23 10:56] LABS: BUN/Creatinine Ratio 32 (6-26); Blood Urea Nitrogen 25 mg/dL (8-23); Calcium 9.2 mg/dL (8.6-10.3); Carbon Dioxide 24 mEq/L (23-29); Chloride 105 mEq/L (98-107); Glucose 127 mg/dL (70-105); Osmolality,Calculated 302 (280-300); Potassium 4.5 mEq/L (3.5-5.1); Sodium 143 mEq/L (136-145); eGFR For African Americans > 60 (> 60); eGFR For Non-African Americans > 60 (> 60)
[2020-03-23] MEDS: *HR* OxyCODONE Immed Rel 5 MG TABLET PO PRN (14:17)
[2020-03-23] MEDS ORDERED: *HR* Warfarin 7.5 MG TABLET PO ONE (18:00)
[2020-03-23] MEDS: Acetaminophen 325 MG TABLET PO PRN (21:24)
[2020-03-24 02:54] LABS: INR 1.9; Prothrombin Time 21.1 Seconds (9.4-12.1)
[2020-03-24] MEDS: Clindamycin 300 MG/50 ML 300 MG/50 ML IV.SOLN IVPB SCH (04:42)
[2020-03-24] MEDS: *HR* HYDROcodone/Acet 5/325 mg TABLET PO PRN ×2 (04:42→10:30)
[2020-03-24] MEDS: Aspirin Enteric Coated 81 MG Tablet PO SCH (07:28)
[2020-03-24] MEDS: Cholecalciferol (D-3) 1,000 UNIT (25MCG) TABLET PO SCH (07:28)
[2020-03-24] MEDS: Lactobacillus 1 EACH CAP.SPRINK PO SCH (07:28)
[2020-03-24] MEDS: DilTIAZem CD (24hr) 240 MG CAP.ER.24H PO SCH (07:29)
[2020-03-24] MEDS: Furosemide 40 MG/4 ML VIAL IVP SCH (07:29)
[2020-03-24] MEDS: Loratadine 10 MG TABLET PO SCH (07:30)
[2020-03-24 10:52] VITALS: BP 105/67
[2020-03-24 13:39] LABS: Adenovirus Not Detected (Not Detect); Bordetella Pertussis Not Detected (Not Detect); Chlamydophila pneumoniae Not Detected (Not Detect); Coronavirus 229E Not Detected (Not Detect); Coronavirus HKU1 Not Detected (Not Detect); Coronavirus NL63 Not Detected (Not Detect); Coronavirus OC43 Not Detected (Not Detect); Human Metapneumovirus Not Detected (Not Detect); Human Rhinovirus/Enterovirus Not Detected (Not Detect); Influenza A Subtype 2009 H1 Not Detected (Not Detect); Influenza B Not Detected (Not Detect); Mycoplasma pneumoniae Not Detected (Not Detect); Parainfluenza Virus 1 Not Detected (Not Detect); Parainfluenza Virus 2 Not Detected (Not Detect); Parainfluenza Virus 3 Not Detected (Not Detect); Parainfluenza Virus 4 Not Detected (Not Detect); Respiratory Syncytial Virus Not Detected (Not Detect); SARS-CoV-2 Not Detected (Not Detect)
[2020-03-24] MEDS: *HR* OxyCODONE Immed Rel 5 MG TABLET PO PRN (15:09)
[2020-03-24] MEDS ORDERED: *HR* Warfarin 7.5 MG TABLET PO ONE (18:00)
== END 2020-03-24 15:27 ==
LOC: 3NENU
PROVIDERS: ADMIT Student in an Organized Health Care Education/Training Program; ATTEND Student in an Organized Health Care Education/Training Program